=== PATIENT | female | born 1980 | race Caucasian/White ===

== ENCOUNTER 2018-03-05 17:24 | Emergency (ER) | payer OTHER ==
[~2018-03-05] VITALS: Ht 172.7 cm; Wt 90.7 kg
--- NOTE | 2018-03-05 17:44 | ED.ADGEN ---
Past History Past Medical History: No Pertinent History Past Surgical History: Other Alcohol Use: Occasionally Drug Use: None Adult General Chief Complaint Chief Complaint " I hurt my back cleaning on Monday.. I ve hurt it before.. they said I have DJD.. My wanted me to get checked out for disc rupture..." HPI HPI Patient is a 37 year old female who presents with above hx and complaints of lumbar sacral back pain and sciatica complaints. Patient has been told previously he has degenerative joint changes. She denies any problems with defecation or urination. No history immunosuppression. No history of cancer. No history of fever or chills. No recent travel. No specific ill contacts. Pain seems to primarily radiate down left sciatic nerve. Review of Systems Review of Systems Constitutional: Denies fever or chills [] Eyes: Denies change in visual acuity, redness, or eye pain [] HENT: Denies nasal congestion or sore throat [] Respiratory: Denies cough or shortness of breath [] Cardiovascular: No additional information not addressed in HPI [] GI: Denies abdominal pain, nausea, vomiting, bloody stools or diarrhea [] : Denies dysuria or hematuria [] Musculoskeletal: Complaints of back pain as per history of present illness] Integument: Denies rash or skin lesions [] Neurologic: Denies headache, focal weakness or sensory changes [] Endocrine: Denies polyuria or polydipsia [] All other systems were reviewed and found to be within normal limits, except as documented in this note. Family History Family History Noncontributory Current Medications Current Medications Current Medications Medications (Trade) Dose Ordered Sig/[facility] Start Time Stop Time Status Last Admin Dose Admin Ketorolac Tromethamine (Toradol Im) 60 mg 1X ONCE 03/05/18 18:45 03/05/18 18:46 DC 03/05/18 18:33 60 MG Methylprednisolone Acetate (DEPO-Medrol IM) 40 mg 1X ONCE 03/05/18 18:45 03/05/18 18:46 DC 03/05/18 18:33 40 MG Allergies Allergies Allergies Coded Allergies Type Severity Reaction Last Updated Verified No Known Drug Allergies 03/05/18 No Physical Exam Physical Exam Constitutional: Well developed, well nourished, no acute distress, non-toxic appearance. [] HENT: Normocephalic, atraumatic, bilateral external ears normal, oropharynx moist, no oral exudates, nose normal. [] Eyes: PERRLA, EOMI, conjunctiva normal, no discharge. [] Neck: Normal range of motion, no tenderness, supple, no stridor. [] Cardiovascular:Heart rate regular rhythm, no murmur [] Lungs & Thorax: Bilateral breath sounds clear to auscultation [] Abdomen: Bowel sounds normal, soft, no tenderness, no masses, no pulsatile masses. [] No saddle or groin sensation loss. Skin: Warm, dry, no erythema, no rash. [] Back: Para spinal lumbar tenderness tenderness, no CVA tenderness. [] Patient has tenderness along left sciatic nerve that radiates into her left gluteal area. Extremities: No tenderness, no cyanosis, no clubbing, ROM intact, no edema. [] Neurologic: Alert and oriented X 3, normal motor function, normal sensory function, no focal deficits noted. [] Psychologic: Affect anxious, judgement normal, mood normal. [] Current Patient Data Vital Signs Vital Signs Date Time Temp Pulse Resp B/P (MAP) Pulse Ox O2 Delivery O2 Flow Rate FiO2 03/05/18 19:28 61 18 132/72 (92) 100 Room Air 03/05/18 17:39 97.9 Lab Results Laboratory Tests Test 03/05/18 17:55 Urine Collection Type Unknown Urine Color Yellow Urine Clarity Hazy Urine pH 7.0 Urine Specific [place] 1.020 Urine Protein Neg (NEG-TRACE) Urine Glucose (UA) Neg mg/dL (NEG) Urine Ketones (Stick) Neg mg/dL (NEG) Urine Blood Neg (NEG) Urine Nitrite Neg (NEG) Urine Bilirubin Neg (NEG) Urine Urobilinogen Dipstick 0.2 mg/dL (0.2 mg/dL) Urine Leukocyte Esterase Neg (NEG) Urine RBC 1-2 /HPF (0-2) Urine WBC Occ /HPF (0-4) Urine Squamous Epithelial Cells Few /LPF Urine Amorphous Sediment Present /HPF Urine Bacteria Few /HPF (0-FEW) Urine Mucus Slight /LPF Urine Opiates Screen Neg (NEG) Urine Methadone Screen Neg (NEG) Urine Barbiturates Neg (NEG) Urine Phencyclidine Screen Neg (NEG) Urine Amphetamine/Methamphetamine Neg (NEG) Urine Benzodiazepines Screen Neg (NEG) Urine Cocaine Screen Neg (NEG) Urine Cannabinoids Screen Neg (NEG) Urine Ethyl Alcohol Neg (NEG) EKG EKG [] Radiology/Procedures Radiology/Procedures My interpretation CT of lumbar sacral spine shows disc bulge at L5-S1 causing mild to moderate central canal narrowing and severe left neural foraminal stenosis. No obvious fracture. See formal report when available[] Course & Med Decision Making Course & Med Decision Making Pertinent Labs and Imaging studies reviewed. (See chart for details). Ice packs as needed. Take Tylenol and ibuprofen for pain. For marked pain take Vicoprofen up 4 times a day. Patient given a trial prescription of Flexeril for muscle spasms. Patient follow-up primary care. Patient allow bowel rest. Patient to follow-up primary care and discuss plan for possible further evaluation of her L5/S1 central canal and left neural foramen stenosis. [] Final Impression Final Impression 1. Back Pain[] 2. Sciatica 3. Posterior disc Bulge L5/S1- mild to moderate central canal and severe Lt neural foramen stenosis Dragon Disclaimer Dragon Disclaimer This electronic medical record was generated, in whole or in part, using a voice recognition dictation system. KIRSTEN BECKETT MD Mar 05, 2018 17:44
[2018-03-05 18:23] LABS: BARBITURATES NEG (NEG); BENZODIAZEPINES NEG (NEG); CANNABINOIDS NEG (NEG); COCAINE NEG (NEG); METHADONE NEG (NEG); OPIATES NEG (NEG); PHENCYCLIDINE NEG (NEG)
[2018-03-05 18:24] LABS: AMPHETAMINE/METHAMPHETAMINE NEG (NEG)
[2018-03-05 18:29] LABS: AMORPHOUS SEDIMENT,UR PRESENT /HPF; BACTERIA,URINE FEW /HPF (0-FEW); BILIRUBIN,URINE NEG (NEG); CLARITY,URINE HAZY; COLOR,URINE YELLOW; GLUCOSE,URINE NEG (NEG); NITRITE,URINE NEG (NEG); SQUAMOUS EPITHELIAL CELL,UR FEW /LPF; UROBILINOGEN,URINE 0.2 mg/dL (0.2 mg/dL); WBC,URINE OCC /HPF (0-4)
[2018-03-05] MEDS ORDERED: KETOROLAC 60 MG/2 ML VIAL. IM ONE (18:45)
[2018-03-05] MEDS ORDERED: methylPREDNISolone ACETATE 40 MG/ML VIAL. IM ONE (18:45)
--- NOTE | 2018-03-05 18:58 | RAD ---
Exam performed: CT scan lumbar spine. Indication: Severe low back pain radiating to the left hip for 2 days Date of Service: 03/05/2018. Comparison: None available Technique: Contiguous helical acquisitions of the lumbar spine are obtained. Sagittal and coronal reformatted images are obtained and reviewed. CT lumbar spine findings: Normal sagittal alignment is preserved. Five nonrib-bearing vertebral bodies are identified. The vertebral body heights are maintained. There is narrowing of L5-S1 disc space, the remainder intervertebral disc spaces are maintained. There is no acute compression fracture. Axial imaging through intervertebral disc spaces demonstrates posterior disc bulge at L5-S1 causing severe left neural foramen stenosis. There is mild to moderate central canal. Mild right neural foramen narrowing is identified. Mild disc bulges at other levels causes mild central canal stenosis. No high-grade central canal or neural foramen stenosis is identified. No prevertebral soft tissue swelling or mass is detected. The aorta is normal. Impression: 1. Posterior disc bulge at L5/S1 causing mild to moderate central canal and severe left neural foramen stenosis. PQRS Compliance Statement: One or more of the following individualized dose reduction techniques were utilized for this examination: 1. Automated exposure control 2. Adjustment of the mA and/or kV according to patient size 3. Use of iterative reconstruction technique Electronically signed by: Nadia Gandara MD (03/05/2018 6:54 PM) [facility]
[2018-03-05] MEDS ORDERED: CYCL-331 PO (19:18)
[2018-03-05] MEDS ORDERED: HYDR-79 PO (19:18)
[2018-03-05 19:28] VITALS: BP 132/72
== END 2018-03-05 19:30 | disposition home or self-care (01) ==
LOC: ER 17:24
DX: M54.42 Lumbago with sciatica, left side (principal); M99.83 Other biomechanical lesions of lumbar region; M99.84 Other biomechanical lesions of sacral region
CPT/HCPCS: 36415; 72131; 80307; 81001; 96372; 99285; J1030; J1885; G0479

== ENCOUNTER 2018-05-29 20:50 | Emergency (ER) | payer OTHER ==
[~2018-05-29] VITALS: Ht 172.7 cm; Wt 96.2 kg
[~2018-05-29 20:50] MED LIST: CYCL-331 PO; HYDR-1179 PO
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
[2018-05-29] MEDS ORDERED: IBUPROFEN 600 MG TABLET. PO ONE (21:30)
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
[2018-05-29 22:11] VITALS: BP 132/82
== END 2018-05-29 22:02 | disposition home or self-care (01) ==
LOC: ER 20:50
DX: S16.1XXA Strain of muscle, fascia and tendon at neck level, initial encounter (principal); R51 Headache; V43.92XA Unspecified car occupant injured in collision with other type car in traffic accident, initial encounter; Y93.89 Activity, other specified; Y92.488 Other paved roadways as the place of occurrence of the external cause; Y99.8 Other external cause status
CPT/HCPCS: 70450; 72125; 99284-25